=== PATIENT | female | born 1975 | race Caucasian/White ===

== ENCOUNTER 2019-03-29 20:55 | Emergency (ER) | payer MEDICAID, OTHER ==
[2019-03-29 21:12] VITALS: BP 115/77; PULSE 66; RESP 20; TEMP 98.4; O2SAT 99
--- NOTE | 2019-03-29 21:30 | C.PDOC ---
History Of Present Illness 43 year old female presents to the ED c/o itchy rash to her face and neck for the past 2 days. Patient reports trying Ketoconazole cream with no relief. Patient denies known allergens, fever, chills, cough, SOB, wheezing, facial swelling, lip swelling, tongue swelling. Time Seen by Provider: 03/29/19 21:15 Chief Complaint (Nursing): Abnormal Skin Integrity History Per: Patient History/Exam Limitations: no limitations Onset/Duration Of Symptoms: Days (2) Current Symptoms Are (Timing): Still Present Location Of Injury: Right: Face, Left: Face, Anterior: Neck Quality Of Symptoms: Itching Recent travel outside of the [place]: No Additional History Per: Patient Past Medical History Reviewed: Historical Data, Nursing Documentation, Vital Signs Vital Signs: Last Vital Signs Temp 98.4 F 03/29/19 21:01 Pulse 66 03/29/19 21:01 Resp 20 03/29/19 21:01 BP 115/77 03/29/19 21:01 Pulse Ox 99 03/29/19 21:01 Primary Care Provider: Taylor Kramer - Medical History PMH: No Chronic Diseases Surgical History: No Surg Hx Family History: States: Unknown Family Hx - Social History Hx Tobacco Use: No Hx Alcohol Use: No Hx Substance Use: No - Immunization History Hx Tetanus Toxoid Vaccination: No Hx Influenza Vaccination: No Hx Pneumococcal Vaccination: No Review Of Systems Constitutional: Negative for: Fever, Chills ENT: Negative for: Mouth Swelling, Throat Swelling Respiratory: Negative for: Shortness of Breath, Wheezing Gastrointestinal: Negative for: Vomiting Skin: Positive for: Rash Neurological: Negative for: Weakness, Numbness Physical Exam - Physical Exam Appears: Non-toxic, No Acute Distress Skin: Warm, Dry, Rash (erythematous rash to bilateral eyelid and face. Irritation to upper neck as well) Head: Atraumatic, Normacephalic Eye(s): bilateral: Normal Inspection, PERRL, EOMI Oral Mucosa: Moist Tongue: No Swelling Lips: No Swelling Throat: Normal, No Erythema, No Exudate, Other (airway patent) Neck: Normal ROM, Supple Chest: Symmetrical Cardiovascular: Rhythm Regular Respiratory: Normal Breath Sounds, No Rales, No Rhonchi, No Wheezing Extremity: Normal ROM Neurological/Psych: Oriented x3, Normal Speech, Normal Cognition Gait: Steady ED Course And Treatment O2 Sat by Pulse Oximetry: 99 (ON RA) Pulse Ox Interpretation: Normal Progress Note: Plan: - Prednisone 60 mg PO. Patient reports improvement to symptoms after medication was given. Patient remained breathing without difficulty, no wheezing, NARD. Patient advised to continue using antihistamines at home. Disposition Counseled Patient/Family Regarding: Diagnosis, Need For Followup, Rx Given - Disposition Referrals: Taylor Kramer MD [Staff Provider] - Disposition: HOME/ ROUTINE Disposition Time: 21:39 Condition: STABLE Additional Instructions: Please take benadryl otc for itching If drowsy please take zyrtec \ Do not apply much cosmetics or lotions or soap to face Wash face with water and hypoallergenic facial wash as needed Follow up with Dermatogy if symptoms presist Return to ER if worse Prescriptions: Hydrocortisone 0.5% CREAM [Cortizone 0.5% CREAM] 1 applic EXT BID #60 g predniSONE [Prednisone] 40 mg PO DAILY #6 tab Instructions: Contact Dermatitis (DC) Forms: [employer] (Portuguese) Print Language: ESTONIAN - Clinical Impression Clinical Impression: Allergic contact dermatitis - 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 - Scribe Statement The provider has reviewed the documentation as recorded by the Scribe Carlos Potter All medical record entries made by the Sethibaileen were at my direction and personally dictated by me. I have reviewed the chart and agree that the record accurately reflects my personal performance of the history, physical exam, medical decision making, and the department course for this patient. I have also personally directed, reviewed, and agree with the discharge instructions and disposition.
== END 2019-03-29 21:49 | disposition home or self-care (01) ==
LOC: C.ER 20:55
DX: L23.9 Allergic contact dermatitis, unspecified cause (principal)